=== PATIENT | female | born 1975 ===

== ENCOUNTER → 2018-05-03 | Day surgery (SDC) | payer OTHER ==
[~2018-05-03] MED LIST: COLACE100 MG PO; ESTRAD PO; LIPITOR20 MG PO; PERCOCET 5-3251 EACH PO
== END | disposition home or self-care (01) ==
LOC: ADM 04-29 11:30 → CIR.AMB 05:45
DX: D01.3 Carcinoma in situ of anus and anal canal (principal)

== ENCOUNTER 2018-05-10 05:00 | Inpatient (IN) | payer OTHER ==
[~2018-05-10] VITALS: Ht 160 cm; Wt 115.0 kg
== END 2018-05-11 13:04 | disposition home or self-care (01) | DRG 390 ==
LOC: ER 05:00 → SURG 14:14
PROVIDERS: Surgery
PROC: 3E0T3BZ Introduction of Anesthetic Agent into Peripheral Nerves and Plexi, Percutaneous Approach (ICD-10-PCS; 2018-05-10)
PROC: 0DCQ8ZZ Extirpation of Matter from Anus, Via Natural or Artificial Opening Endoscopic (ICD-10-PCS; principal; 2018-05-10 15:00)
DX: K56.41 Fecal impaction (principal); K62.89 Other specified diseases of anus and rectum